=== PATIENT | female | born 1985 | race Caucasian/White ===

== ENCOUNTER → 2016-07-04 | Day surgery (SDC) | payer OTHER ==
[~2016-07-04] MED LIST: ACETAMINOPHEN/HYDROcodone 325 MG/5 MG TAB ONE; DOCO200C PO; IBUP600 PO; KETOROLAC TROMETHAMINE 30 MG/ML (IVP) VIAL IV PUSH ONE; LACTATED RINGER'S 1000 ML INJ 1,000 ML ONE; MIDAZOLAM HCL 2 MG/2 ML VIAL ONE; ONDANSETRON HCL 4 MG/2 ML VIAL IV PUSH ONE; OXYC1SOL5 PO; PERI8.6T PO; PROPOFOL 200 MG/20 ML AMP IV ONE; RANI150 PO; ceFAZolin INJ 1,000 MG VIAL ONE
--- NOTE | 2016-07-04 16:48 | TN ---
cc: MADELINE PISANO M.D. DATE OF SURGERY 07/04/2016 PREOPERATIVE DIAGNOSES 1. Ventral hernia, supraumbilical. 2. Slightly irregular dark pigmented lesion of the abdominal wall measuring about 5 mm left upper quadrant. POSTOPERATIVE DIAGNOSES 1. Two ventral hernias. 2. Umbilical hernia. 3. Pigmented lesion left upper quadrant. PROCEDURE 1. Repair of two ventral hernias supraumbilical. 2. Repair of umbilical hernia. 3. Removal of pigmented skin lesion left upper quadrant. ANESTHESIA General. SURGEON Dr. Pisano. Indication This is a pleasant 30-year-old female who is having abdominal tenderness in the supraumbilical area and it is found she had a ventral hernia. Plans were made for above. Intraoperatively we found that she actually had two ventral hernias, one that was supraumbilical and then another hernia about a centimeter above the larger ventral hernia. During the examine in the operating room we were able to identify that she has an umbilical hernia about 3-4 centimeters below the ventral hernia in the midline. This was repaired as well. PROCEDURE The patient was taken to the operating room and placed in the supine position. After anesthesia her abdomen was prepped with Betadine solution. We make an incision from the umbilicus to about 4 cm above where this tenderness is palpated. We dissect down to the subcutaneous tissue identifying a ventral hernia, this is reduced quite easily. The fascia is then exposed circumferentially and about a centimeter above slightly to the right is another ventral hernia which is then reduced. The area in question is then reapproximated using a 0 Ethibond and the two ventral hernias were closed in a horizontal fashion. We used approximately seven sutures to reapproximate this defect. When then dissecting down just at the umbilicus, it is noted that she does have a small umbilical hernia as well. The hernia sac is opened. Contents were reduced and the skin is elevated off the fascial layer. We then are able to reapproximate this defect in a vertical fashion using a 0 Ethibond as well. We are able to palpate in the abdomen the previous repair of the ventral hernia and I do not feel any other defects as far as I could reach superiorly and inferiorly. The hernia defects are closed with a 0 Ethibond, the subcutaneous tissue is then closed with a 3-0 Vicryl and skin with 4-0 Vicryl. Steri-Strips applied. Sterile bandage applied. We then direct our attention the left upper quadrant where she has this slightly irregular pigmented skin lesion. We anesthetized the area and use the 5-mm punch biopsy, we were able to remove this in its entirety and this is sent down to pathological analysis. A single Vicryl stitch is placed to reapproximate this. A sterile bandage applied. The patient tolerated the procedure and had no immediate postop complications. Madeline Pisano MD JDB/[id number] /3:24 PM /4:26 PM
== END | disposition home or self-care (01) ==
LOC: ESDC 08:54
PROVIDERS: ATTEND Surgery
DX: K43.9 Ventral hernia without obstruction or gangrene (principal); K42.9 Umbilical hernia without obstruction or gangrene; L98.9 Disorder of the skin and subcutaneous tissue, unspecified
CPT/HCPCS: 00400; 00750; 00752; 11400; 49560; 49585; 88305; J0690; J1885; J2250; J2405; J3010; J7120